=== PATIENT | male | born 1950 | race African-American/Black ===

== ENCOUNTER 2017-07-29 21:35 | Inpatient (IN) ==
--- NOTE | 2017-07-29 21:48 | Emergency Department Note ---
Disposition Clinical Impression: Left-sided weakness, Facial droop, Stroke-like symptoms Disposition: Admitted As Inpatient Condition: Fair Time of Disposition: 23:02 General Adult HPI - General Chief complaint: ED Neuro Symptoms/Deficit Stated complaint: Possible Stroke Time Seen by Provider: 07/29/17 21:39 Source: patient, EMS Mode of arrival: EMS Limitations: no limitations Nursing Notes Reviewed: Yes Vital Signs Reviewed: Yes - History of Present Illness HPI Narrative: Patient is a 67-year-old male presents with the complaint of left-sided facial drooping and left-sided weakness that started at 20:00 this evening approximately one hour prior to arrival. I spoke with the patient's partner states he was sitting in his chair and got accused [place] restroom and used. Unsteady on his feet and then he was slurring his words. Cervical squad. On arrival the patient does have left-sided facial weakness in upper and lower extremity weakness. He states he does not have any medical history, no history of strokes, no history of blood thinners. Pain Scale: 0 - Related Data Home Medications Medication Instructions Recorded Confirmed Aspirin Enteric Coated [Aspirin EC] 81 mg PO DAILY 07/29/17 07/29/17 Kyolic Circulation Formula 2 cap PO BID 07/29/17 07/29/17 Multivitamin [One Daily Essential] 1 each PO DAILY 07/29/17 07/29/17 Naproxen Sodium [Aleve] 440 mg PO DAILY 07/29/17 07/29/17 Vitamin B Complex [B Complex] 1 each PO DAILY 07/29/17 07/29/17 Allergies Allergy/AdvReac Type Severity Reaction Status Date / Time No Known Allergies Allergy Verified 07/29/17 21:37 All systems ED: reviewed and negative except as stated. Review of Systems: As Per HPI Constitutional: Denies: fever, chills Eyes: Denies: vision change ENT ED: Denies: congestion Cardiovascular: Denies: chest pain Respiratory: Denies: cough Neurological: Reports: weakness, abnormal gait. Denies: headache, numbness, paresthesias, confusion Past Medical History - Past Medical History Medical history: Reports: no medical history Psychiatric history: Reports: no psych history - Social History Smoking Status: Never smoker Smokeless Tobacco Status: No Alcohol use: Reports: rarely Drug use: Reports: none Physical Exam CONSTITUTIONAL: Alert and oriented X3, well-nourished, in no apparent distress HEAD: Normocephalic; atraumatic. EYES: PERRL, no scleral icterus. NOSE: The nose is normal in appearance without rhinorrhea RESP: Normal chest excursion with respiration; breath sounds clear and equal bilaterally; no wheezes, rhonchi, or rales CARD: Regular rhythm, without murmurs, rub or gallop ABD: Non-distended; non-tender, soft,without rigidity, rebound or guarding SKIN: Normal for age and race; warm and dry; no apparent lesions NEUROLOGICAL: Patient is alert and oriented times three. Cranial nerves III- XII are intact, except patient has tongue deviation to his left. Sensory functions are intact. Patient has 4/5 strength in the left upper and lower extremity. Patellar DTRS are equal and intact. Finger to nose testing is equal and normal bilaterally. No pronator drift. Patient has dysphagia and left sided facial droop. - General Limitations: no limitations General appearance: alert Course Course Narrative: Stroke alert as initiated upon patient's arrival. Patient is NIH stroke scale score of 4. We will consult with [facility] neurology and they will see the patient via telemedicine. - Reevaluation(s) Reevaluation #1: Stroke telemetry was initiated and Dr. Horton saw the patient and he was evaluated at that time and given a NIH stroke scale score of 2 due to his dysphagia. She states she is not a candidate for TPA due to the minor symptoms of his stroke. She recommended admission to our hospital for further evaluation and treatment. Time: 22:09 Reevaluation #2: Patient excepted by Dr. Valdivia. He requested a chest x-ray and a UA be put in on the patient and he will follow up with that and patient. Time: 23:06 Vital Signs Temperature 98.9 F 07/29/17 21:37 Pulse Rate 116 07/29/17 21:37 Respiratory Rate 18 07/29/17 21:37 Blood Pressure 208/121 07/29/17 21:37 O2 Sat by Pulse Oximetry 94 07/29/17 21:37 Temperature 98.5 F 07/30/17 11:32 Pulse Rate 104 07/30/17 11:32 Respiratory Rate 20 07/30/17 11:32 Blood Pressure 208/107 07/30/17 11:32 O2 Sat by Pulse Oximetry 97 07/30/17 11:32 Oxygen Delivery Oxygen Delivery Room Air Medical Decision Making - Medical Records Medical records reviewed: Yes I reviewed the patient's medical records. - Lab Data Lab results reviewed: Yes I reviewed the patient's lab results. Result diagrams: 07/30/17 04:01 07/30/17 04:01 Lab Results 07/29/17 07/29/17 07/29/17 Range/Units 21:44 21:44 21:44 WBC 17.6 H (4.3-11.1) K/mcL RBC 5.60 H (4.19-5.50) M/mcL Hgb 15.4 (12.9-16.9) g/dL Hct 48.0 (37.5-50.1) % MCV 85.7 (83.0-100.0) fL MCH 27.5 L (28.0-33.3) pg MCHC 32.1 (31.6-35.5) g/dL RDW 13.6 (11.5-14.5) % Plt Count 246 (140-400) K/mcL MPV 9.3 L (9.4-12.4) fL Immature Gran % 0.6 (0-4) % Seg Neutrophils % 82.8 % Lymphocytes % 9.7 % Monocytes % 6.5 % Eosinophils % 0.1 % Basophils % 0.3 % Neutrophils # 14.6 H (1.6-8.9) K/mcL Lymphocytes # 1.7 (0.6-4.6) K/mcL Monocytes # 1.2 (0.0-1.3) K/mcL Eosinophils # 0.0 (0.0-0.6) K/mcL Basophils # 0.1 (0.0-0.2) K/mcL PT 14.2 H (9.4-12.1) Seconds INR 1.3 APTT 29.8 (26.0-36.0) Seconds Sodium 135 L (136-145) mEq/L Potassium 3.5 (3.5-4.5) mEq/L Chloride 102 (98-109) mEq/L Carbon Dioxide 24 (19-29) mEq/L BUN 16 (8-26) mg/dL Creatinine 1.31 H (0.72-1.25) mg/dL Est GFR ( Amer) > 60 (> 60) Est GFR (Non-Af Amer) 54 L (> 60) BUN/Creatinine Ratio 12 (6-26) Glucose 133 H (70-99) mg/dL Calculated Osmolality 283 (280-300) Calcium 9.7 (8.6-10.8) mg/dL Troponin I (0-0.03) ng/mL Urine Color (Yellow) Urine Clarity (Clear) Urine pH (5.0-8.0) pH Units Ur Specific [place] (1.010-1.025) Urine Protein (Neg-Trace) mg/dL Urine Glucose (UA) (Normal) mg/dL Urine Ketones (Negative) mg/dL Urine Blood (Negative) Urine Nitrite (Negative) Urine Bilirubin (Negative) Urine Urobilinogen (Normal) mg/dL Ur Leukocyte Esterase (Negative) Urine Microscopic RBC (0-3) per hpf Urine Microscopic WBC (0-3) per hpf Ur Squamous Epith Cells (None-Few) per lpf Urine Bacteria (None-Few) per hpf Hyaline Casts (None-Few) per lpf 07/29/17 07/30/17 Range/Units 21:44 01:34 WBC (4.3-11.1) K/mcL RBC (4.19-5.50) M/mcL Hgb (12.9-16.9) g/dL Hct (37.5-50.1) % MCV (83.0-100.0) fL MCH (28.0-33.3) pg MCHC (31.6-35.5) g/dL RDW (11.5-14.5) % Plt Count (140-400) K/mcL MPV (9.4-12.4) fL Immature Gran % (0-4) % Seg Neutrophils % % Lymphocytes % % Monocytes % % Eosinophils % % Basophils % % Neutrophils # (1.6-8.9) K/mcL Lymphocytes # (0.6-4.6) K/mcL Monocytes # (0.0-1.3) K/mcL Eosinophils # (0.0-0.6) K/mcL Basophils # (0.0-0.2) K/mcL PT (9.4-12.1) Seconds INR APTT (26.0-36.0) Seconds Sodium (136-145) mEq/L Potassium (3.5-4.5) mEq/L Chloride (98-109) mEq/L Carbon Dioxide (19-29) mEq/L BUN (8-26) mg/dL Creatinine (0.72-1.25) mg/dL Est GFR ( Amer) (> 60) Est GFR (Non-Af Amer) (> 60) BUN/Creatinine Ratio (6-26) Glucose (70-99) mg/dL Calculated Osmolality (280-300) Calcium (8.6-10.8) mg/dL Troponin I 0.01 (0-0.03) ng/mL Urine Color Dark Yellow (Yellow) Urine Clarity Clear (Clear) Urine pH 5.5 (5.0-8.0) pH Units Ur Specific [place] 1.030 H (1.010-1.025) Urine Protein 100 H (Neg-Trace) mg/dL Urine Glucose (UA) Normal (Normal) mg/dL Urine Ketones 15 H (Negative) mg/dL Urine Blood Moderate H (Negative) Urine Nitrite Negative (Negative) Urine Bilirubin Small H (Negative) Urine Urobilinogen Normal (Normal) mg/dL Ur Leukocyte Esterase Negative (Negative) Urine Microscopic RBC 30-50 H (0-3) per hpf Urine Microscopic WBC 3-5 H (0-3) per hpf Ur Squamous Epith Cells Many H (None-Few) per lpf Urine Bacteria None Seen (None-Few) per hpf Hyaline Casts Few (None-Few) per lpf - Radiology Data Radiology results reviewed: Yes I reviewed the patient's radiology results. Head CT 07/29/17 21:39 IMPRESSION: No definite acute intracranial findings, including no intracranial hemorrhage or evidence of large territory infarction by CT. There are patchy and periventricular subcortical white matter low attenuation changes, including in the right frontal lobe, which are nonspecific, but may represent sequela of chronic small vessel ischemic change. D/ / 07/29/2017 22:13:53 Rashard James MD / main Interpreting Provider: Rashard James MD - EKG Data EKG #1 EKG attestation: Yes I reviewed and interpreted this EKG. EKG results narrative: Patient's EKG done at 21:57 shows sinus tachycardia, normal axis, KS is 148, QRS is 88, QT is 333 and QTC is 398. Patient has no ST elevations or depressions present. LVH. No acute ischemia.
[2017-07-29 21:51] LABS: Basophils # 0.1 K/mcL (0.0-0.2); Basophils % 0.3 %; Eosinophils % 0.1 %; Hemoglobin 15.4 g/dL (12.9-16.9); Immature Granulocytes % 0.6 % (0-4); Lymphocytes # 1.7 K/mcL (0.6-4.6); Lymphocytes % 9.7 %; Mean Corpuscular HGB Conc 32.1 g/dL (31.6-35.5); Mean Corpuscular Hemoglobin 27.5 pg (28.0-33.3); Mean Corpuscular Volume 85.7 fL (83.0-100.0); Mean Platelet Volume 9.3 fL (9.4-12.4); Monocytes # 1.2 K/mcL (0.0-1.3); Monocytes % 6.5 %; Neutrophils # 14.6 K/mcL (1.6-8.9); Platelet Count 246 K/mcL (140-400); Red Cell Distribution Width 13.6 % (11.5-14.5); Segmented Neutrophils % 82.8 %
[2017-07-29 21:58] LABS: INR 1.3; Prothrombin Time 14.2 Seconds (9.4-12.1)
[2017-07-29 22:00] LABS: Activated Partial Thrombo Time 29.8 Seconds (26.0-36.0)
[2017-07-29 22:05] LABS: BUN/Creatinine Ratio 12 (6-26); Blood Urea Nitrogen 16 mg/dL (8-26); Calcium 9.7 mg/dL (8.6-10.8); Carbon Dioxide 24 mEq/L (19-29); Chloride 102 mEq/L (98-109); Glucose 133 mg/dL (70-99); Osmolality,Calculated 283 (280-300); Potassium 3.5 mEq/L (3.5-4.5); Sodium 135 mEq/L (136-145); eGFR For African Americans > 60 (> 60); eGFR For Non-African Americans 54 (> 60)
[2017-07-30 01:45] LABS: Bilirubin,Urine Small (Negative); Blood,Urine Moderate (Negative); Clarity,Urine Clear (Clear); Color,Urine Dark Yellow (Yellow); Glucose,Urine (UA) Normal (Normal); Ketones,Urine 15 mg/dL (Negative); Leukocyte Esterase,Urine Negative (Negative); Nitrite,Urine Negative (Negative); PH,Urine 5.5 pH Units (5.0-8.0); Protein,Urine 100 mg/dL (Neg-Trace); Urobilinogen,Urine Normal (Normal)
[2017-07-30 01:47] LABS: Bacteria,Urine None Seen per hpf (None-Few); Hyaline Casts,Urine Few per lpf (None-Few); RBC,Urine 30-50 per hpf (0-3); Squamous Epithelial Cell,Urine Many per lpf (None-Few)
--- NOTE | 2017-07-30 03:03 | Internal Med History&Physical ---
Date of Encounter: 07/30/17 Time of Encounter: 02:00 Assessment and Plan (1) Slurring of speech Current visit: Yes Status: Acute -Patient with slurred speech on exam but no other neurological deficits appreciated. -Will continue workup for suspected CVA with MRI/MRA of brain and neck. -Start patient on full aspirin and order fasting lipids/A1c -Monitor blood pressure. -Neurology/physical therapy consulted and appreciate recommendations (2) Hypertension Current visit: Yes Status: Acute -Patient with long-standing history of uncontrolled hypertension. -Will continue to monitor. Qualifiers: Hypertension type: unspecified Qualified Code(s): I10 - Essential (primary ) hypertension (3) TEMI (acute kidney injury) Current visit: Yes Status: Acute -Patient with elevated creatinine of 1.31 and GFR 54. -Will continue to monitor. (4) URI (upper respiratory infection) Current visit: Yes Status: Acute -Patient with leukocytosis secondary to viral URI. -Supportive care. Qualifiers: URI type: acute nasopharyngitis (common cold) Qualified Code(s): J00 - Acute nasopharyngitis [common cold] Internal Medicine - H&P: HPI Admitted From: Home Plans for Post Hospital Care: Home History of present illness: Patient is a 67-year-old male with past medical history significant for uncontrolled hypertension who presents to the ER on 07/30/17 with slurred speech. Patient reports that his friend noticed that his speech was slurred around 8 PM the evening of admission. In addition, patient who is right-handed noticed that he had decreased bridge attacher in left hand and had unsteady gait. EMS was called and patient was brought into the ER for further evaluation. Patient admits to having uncontrolled hypertension for at least 1 year and did not follow-up with primary care provider for management; he was diagnosed at urgent care. In the ER, patient was noted to have slurred speech; ER physician discussed with neurologist through telecommunication and TPA was not recommended. Patient will be admitted to the medical floor for further evaluation and management. Past Med Surg Social Fam HX - Past Medical History Medical history: no medical history Psychiatric history: no psych history - Social History Smoking Status: Former smoker Smokeless Tobacco Status: No Alcohol use: rarely Drug use: none Internal Medicine - H&P: Meds Aspirin Enteric Coated [Aspirin EC] 81 mg PO DAILY 07/29/17 [History] Kyolic Circulation Formula 2 cap PO BID 07/29/17 [History] Multivitamin [One Daily Essential] 1 each PO DAILY 07/29/17 [History] Naproxen Sodium [Aleve] 440 mg PO DAILY 07/29/17 [History] Vitamin B Complex [B Complex] 1 each PO DAILY 07/29/17 [History] 3 Allergy/AdvReac Type Severity Reaction Status Date / Time No Known Allergies Allergy Verified 07/29/17 21:37 All Systems PM: A 10-system review of systems was performed and is negative for pertinent findings except as documented above in the HPI. - Constitutional Vitals: Temp Pulse Resp BP Pulse Ox 98.4 F 102 20 207/146 98 07/30/17 00:14 07/30/17 00:55 07/30/17 00:14 07/30/17 00:55 07/30/17 00:14 General appearance: Present: A&O X 3, answers questions appropriately - Head Head exam: Present: atraumatic, normocephalic - Eye Eye exam: Present: EOMI - ENT ENT exam: Present: mucous membranes moist - Respiratory Respiratory exam: Present: CTAB. Absent: accessory muscle use, rales, rhonchi, wheezes - Cardiovascular Cardiovascular exam: Present: RRR, +S1, +S2. Absent: diastolic murmur, gallop, rubs, systolic murmur - GI/Abdominal GI/Abdominal exam: Present: normal bowel sounds, soft, no peritoneal signs. Absent: distended, tenderness - Expanded Neurological Exam Neurological exam expanded: Present: ataxia. Absent: expressive aphasia Speech: Present: slurred Cranial Nerves: EOM's intact PM: Normal, tongue deviation PM: Normal Cerebellar function: finger to nose: Normal, heel to rosen: Normal Upper motor neuron: pronator drift: Normal Sensory exam: lower extremity light touch: Normal, lower extremity temperature: Normal, upper extremity light touch: Normal, upper extremity temperature: Normal Neuro motor strength exam: LUE: 5, RUE: 5, LLE: 5, RLE: 5 - Psychiatric Psychiatric exam: Present: normal mood - Skin Skin exam: Present: warm Internal Med - H&P Results - Labs CBC & Chem 7: 07/29/17 21:44 07/29/17 21:44 Labs: Urine 07/30/17 Range/Units 01:34 Urine Color Dark Yellow (Yellow) Urine Clarity Clear (Clear) Urine pH 5.5 (5.0-8.0) pH Units Ur Specific [place] 1.030 H (1.010-1.025) Urine Protein 100 H (Neg-Trace) mg/dL Urine Glucose (UA) Normal (Normal) mg/dL
[2017-07-30] MEDS ORDERED: Naloxone 0.4 MG/ML INJ IVP PRN (03:20)
[2017-07-30 04:46] LABS: Basophils % 0.2 %; Eosinophils % 0.1 %; Hematocrit 47.5 % (37.5-50.1); Hemoglobin 15.1 g/dL (12.9-16.9); Immature Granulocytes % 0.5 % (0-4); Lymphocytes # 1.6 K/mcL (0.6-4.6); Lymphocytes % 9.5 %; Mean Corpuscular HGB Conc 31.8 g/dL (31.6-35.5); Mean Corpuscular Volume 84.8 fL (83.0-100.0); Mean Platelet Volume 9.7 fL (9.4-12.4); Monocytes # 1.2 K/mcL (0.0-1.3); Monocytes % 7.5 %; Neutrophils # 13.5 K/mcL (1.6-8.9); Platelet Count 239 K/mcL (140-400); Red Cell Distribution Width 13.5 % (11.5-14.5); Segmented Neutrophils % 82.2 %
[2017-07-30 04:50] LABS: Hemoglobin A1C 5.1 %
[2017-07-30 04:57] LABS: BUN/Creatinine Ratio 13 (6-26); Blood Urea Nitrogen 16 mg/dL (8-26); Calcium 9.5 mg/dL (8.6-10.8); Carbon Dioxide 23 mEq/L (19-29); Chloride 102 mEq/L (98-109); Chol/HDL Ratio 3.5 (0-4.9); Cholesterol 160 mg/dL (< 200); Glucose 116 mg/dL (70-99); HDL Cholesterol 46 mg/dL (40-59); LDL Cholesterol,Calculated 95 mg/dL (0-99); Osmolality,Calculated 284 (280-300); Potassium 3.9 mEq/L (3.5-4.5); Sodium 136 mEq/L (136-145); Triglycerides 96 mg/dL (< 150); eGFR For African Americans > 60 (> 60); eGFR For Non-African Americans > 60 (> 60)
[2017-07-30] MEDS ORDERED: Aspirin Enteric Coated 325 MG Tablet PO SCH (09:00)
--- NOTE | 2017-07-30 10:52 | Neurology - Consult Note ---
Date of Encounter: 07/30/17 Time of Encounter: 10:51 Assessment and Plan (1) CVA (cerebral vascular accident) Current Visit: Yes Status: Acute The patient with PMH significant for HTN who developed slurred speech and left sided weakness, consistent with MRI of brain showing new acute new small cerebral infarct bilaterally more on the right side. This appears embolic in etiology. 1. Continue telemetry monitoring. 2. Will need LEONID if TTE returns normal. 3. Agree with Aspirin 325mg daily. 4. Await formal report of MRI of brain and MRA of brain and neck. 5. Await Carotid artery duplex study. 6. If cardiac source can not be identified, patient may benefit from outpatient group home cardiac rhythm monitoring Continue medical treatment of renal failure and leucocytosis, which appear improving Qualifiers: CVA mechanism: embolism Precerebral and cerebral artery: unspecified precerebral artery Qualified Code(s): I63.10 - Cerebral infarction due to embolism of unspecified precerebral artery History of Present Illness Chief complaint: slurred speech and left aided weakness HPI: Mr. Foster is a 67 year old male with PMH significant for HTN who developed acute onset of slurred speech and left arm weakness. This occurred last night at around 8pm and by the time he arrived ER he has only slurred speech. Contact [facility] stroke telemedicine team who recommended no tPA and hospital admission. MRI of brain just completed and showed few small acute ischemic infarct involving both hemisphere more on the right side. MRA of brain and neck completed and result is pending. Patient neurological symptoms significantly improved at present time. Patient stakes 81mg aspirin at home. Increased to full dose Aspirin. Has history of HTN and not seeing PCP. no history cardiac dysarrhythmia. Past Med Surg Social Fam HX - Past Medical History Medical history: no medical history Psychiatric history: no psych history - Social History Smoking Status: Former smoker Smokeless Tobacco Status: No Alcohol use: rarely Drug use: none Medications and Allergies Aspirin Enteric Coated [Aspirin EC] 81 mg PO DAILY 07/29/17 [History] Kyolic Circulation Formula 2 cap PO BID 07/29/17 [History] Multivitamin [One Daily Essential] 1 each PO DAILY 07/29/17 [History] Naproxen Sodium [Aleve] 440 mg PO DAILY 07/29/17 [History] Vitamin B Complex [B Complex] 1 each PO DAILY 07/29/17 [History] 3 Allergy/AdvReac Type Severity Reaction Status Date / Time No Known Allergies Allergy Verified 07/29/17 21:37 All Systems: A 10-system review of systems was performed and is negative for pertinent findings except as documented above in the HPI. Physical Examination - Vital Signs Vital Signs: Initial Vital Signs Temp Pulse Resp BP Pulse Ox 98.9 F 116 18 208/121 94 07/29/17 21:37 07/29/17 21:37 07/29/17 21:37 07/29/17 21:37 07/29/17 21:37 - Constitutional General appearance: comfortable - Neurologic Detailed motor examination: full strength in all major muscle groups Motor examination - right side: 01/21: deltoids, biceps, triceps, wrist flexion, wrist extension, varnish melter, hip flexors, tibialis Anterior, quadriceps, toe extension (EHL), plantarflexion Motor examination - left side: 01/21: deltoids, biceps, triceps, wrist flexion, wrist extension, hip flexors, varnish melter, quadriceps, tibialis Anterior, toe extension (EHL), plantarflexion Mental Status Examination: awake, alert, oriented to person, oriented to place, oriented to time, follows commands appropriately, answers questions appropriately, no agnosia, no aphasia, no aproxia Cranial nerve examination: PERRL, EOMI, visual carrington intact, corneal reflexes brisk symmetrically, sensory to face intact, mastication intact, no facial asymmetry is present, no dysarthria, hearing is intact symmetrically, soft palate elevates bilaterally upon phonation, gag reflex intact, flexes SCM and trapezius muscles symmetrically with full power, tongue protrudes midline, no atrophy or facial fasiculations present Cerebellar examination: no dysmetria, performs finger to nose and heel to rosen symmetrically without ataxia, no gait ataxia, no truncal ataxia, no difficulty with rapid alternating movements Results - Laboratory Findings CBC and BMP: 07/30/17 04:01 07/30/17 04:01 Abnormal lab findings: Abnormal lab results WBC 16.5 K/mcL (4.3-11.1) H 07/30/17 04:01 RBC 5.60 M/mcL (4.19-5.50) H 07/30/17 04:01 MCH 27.0 pg (28.0-33.3) L 07/30/17 04:01 Neutrophils # 13.5 K/mcL (1.6-8.9) H 07/30/17 04:01 PT 14.2 Seconds (9.4-12.1) H 07/29/17 21:44 Glucose 116 mg/dL (70-99) H 07/30/17 04:01 Ur Specific [place] 1.030 (1.010-1.025) H 07/30/17 01:34 Urine Protein 100 mg/dL (Neg-Trace) H 07/30/17 01:34 Urine Ketones 15 mg/dL (Negative) H 07/30/17 01:34 Urine Blood Moderate (Negative) H 07/30/17 01:34 Urine Bilirubin Small (Negative) H 07/30/17 01:34 Urine Microscopic RBC 30-50 per hpf (0-3) H 07/30/17 01:34 Urine Microscopic WBC 3-5 per hpf (0-3) H 07/30/17 01:34 Ur Squamous Epith Cells Many per lpf (None-Few) H 07/30/17 01:34 Consult Discharge Plan - Plan Referrals: NONE,PCP [Primary Care Provider] -
--- NOTE | 2017-07-30 14:25 | Internal Med Progress Note ---
Date of Encounter: 07/30/17 Time of Encounter: 09:40 - Assessment and plan (1) Acute CVA (cerebrovascular accident) Current Visit: Yes Status: Acute Assessment and plan: Acute CVA of the right temporal and frontal lobe involving the right middle cerebral artery territory, subacute infarct in the left insula cortex with mild chronic small vessel ischemic disease, possible embolic source - causing slurred speech and transient left-sided weakness Continue Aspirin 325 mg, Lipitor 40 mg Add Losartan/HCTZ, permissive hypertension due to acute CVA CT head - no acute intracranial findings MRA head/neck - no significant abnormality of the intracranial circulation, no significant abnormality of the neck vessels MRI brain - reviewed CXR - no acute process EKG - sinus tachycardia with no acute ST-T changes Troponin - 0.01 Lipid panel - reviewed Carotid Doppler - pending Echocardiogram - pending Speech therapy consult - advised patient needs an regular textures with continuous aspiration precautions Start clear liquids tonight and then advance PT/OT consult - pending Neurology consult - recommendations reviewed, appreciate input Cardiac telemetry, NIH stroke scale, labs in a.m., neurochecks, monitor closely (2) Accelerated hypertension Current Visit: Yes Status: Acute Assessment and plan: Accelerated hypertension - newly diagnosed Start Losartan/HCTZ Permissive hypertension due to acute CVA - goal SBP between 160-180 for 24 hours (3) DVT prophylaxis Current Visit: Yes Status: Acute Assessment and plan: Continue Heparin subcutaneous - Time Spent With Patient 25 - 35 minutes - Subjective Interval history: Examined this morning. Patient is awake and alert. Not in any distress. Denies chest pain or shortness of breath. No fever. Blood pressure is uncontrolled. Family is at bedside. No other acute events or complaints. Family states his speech is better but not back to baseline. Admitted for slurred speech and left-sided weakness. MRI does show acute CVA which could possibly be embolic in origin. Echocardiogram is pending. Neurology has evaluated patient. Patient passed the swallow study and can be on a cardiac diet. - Constitutional Vitals: Temp Pulse Resp BP Pulse Ox 98.5 F 104 20 208/107 97 07/30/17 12:55 07/30/17 12:55 07/30/17 12:55 07/30/17 12:55 07/30/17 11:32 General appearance: Present: cooperative, A&O X 3, pleasant, no acute distress, answers questions appropriately Exam: Able to verbalize and follows commands. - Head Head exam: Present: atraumatic - Eye Eye exam: Present: EOMI - ENT ENT exam: Present: mucous membranes moist - Neck Neck exam general surgery: Present: full ROM - Respiratory Respiratory exam: Present: CTAB. Absent: accessory muscle use, chest wall tenderness, rales, rhonchi, wheezes, tachypnea - Cardiovascular Cardiovascular exam: Present: RRR, +S1, +S2 - GI/Abdominal GI/Abdominal exam: Present: soft. Absent: distended, firm, guarding, tenderness - Extremities Exam Extremities exam: Present: radial pulses palpable and symmetrical. Absent: calf tenderness, cyanotic, pedal edema - Neurological Exam Neurological exam: Present: alert, CN II-XII intact, oriented X3, no focal deficits, speech deficit (Mild slurred speech). Absent: facial droop Internal Medicine: Result - Labs CBC & Chem 7: 07/30/17 04:01 07/30/17 04:01 Labs: Short CBC 07/30/17 Range/Units 04:01 WBC 16.5 H (4.3-11.1) K/mcL Hgb 15.1 (12.9-16.9) g/dL Hct 47.5 (37.5-50.1) % Plt Count 239 (140-400) K/mcL Neutrophils # 13.5 H (1.6-8.9) K/mcL BMP 07/30/17 04:01 Sodium 136 Potassium 3.9 Chloride 102 Carbon Dioxide 23 BUN 16 Creatinine 1.19 Glucose 116 H Calcium 9.5 - ABG Interpretation ABG results: PT/INR, D-dimer PT 14.2 Seconds (9.4-12.1) H 07/29/17 21:44 - VTE Reasons for not Prescribing Prophylaxis: Treatment not Indicated - Low risk for VTE Consult Discharge Plan - Plan Referrals: NONE,PCP [Primary Care Provider] -
[2017-07-30] MEDS ORDERED: Ondansetron 4 MG/2 ML VIAL IVP PRN (16:00)
[2017-07-30] MEDS ORDERED: 0.9 % Sodium Chloride 1,000 ML IVC SCH (16:15)
[2017-07-30] MEDS: Losartan/HCTZ 50-12.5 TABLET PO SCH (17:44)
[2017-07-30] MEDS: *HR* Heparin 5,000 UNIT/ML VIAL SQ SCH (17:44)
[2017-07-30] MEDS: Famotidine 20 MG TABLET PO SCH (21:14)
[2017-07-30] MEDS ORDERED: hydrOXYzine pamoate 25 MG CAPSULE PO ONE (21:28)
[2017-07-31 04:06] LABS: Basophils % 0.3 %; Eosinophils # 0.1 K/mcL (0.0-0.6); Eosinophils % 0.5 %; Hematocrit 45.2 % (37.5-50.1); Hemoglobin 14.3 g/dL (12.9-16.9); Immature Granulocytes % 0.5 % (0-4); Lymphocytes # 2.1 K/mcL (0.6-4.6); Lymphocytes % 19.6 %; Mean Corpuscular HGB Conc 31.6 g/dL (31.6-35.5); Mean Corpuscular Volume 85.3 fL (83.0-100.0); Mean Platelet Volume 9.5 fL (9.4-12.4); Monocytes # 0.8 K/mcL (0.0-1.3); Monocytes % 7.9 %; Neutrophils # 7.5 K/mcL (1.6-8.9); Platelet Count 267 K/mcL (140-400); Red Cell Distribution Width 13.6 % (11.5-14.5); Segmented Neutrophils % 71.2 %
[2017-07-31] MEDS: *HR* Heparin 5,000 UNIT/ML VIAL SQ SCH ×2 (05:31→17:34)
[2017-07-31] MEDS: Losartan/HCTZ 50-12.5 TABLET PO SCH (09:33)
[2017-07-31] MEDS: Aspirin 325 MG TABLET PO SCH (09:33)
[2017-07-31] MEDS: Multivit/Ca/Min/Fe/FA 1 TAB TABLET PO SCH (09:33)
[2017-07-31] MEDS: Famotidine 20 MG TABLET PO SCH ×2 (09:34→21:49)
--- NOTE | 2017-07-31 15:20 | Internal Med Progress Note ---
Date of Encounter: 07/31/17 Time of Encounter: 11:00 - Assessment and plan (1) Acute CVA (cerebrovascular accident) Current Visit: Yes Status: Acute Assessment and plan: Acute CVA of the right temporal and frontal lobe involving the right middle cerebral artery territory, subacute infarct in the left insula cortex with mild chronic small vessel ischemic disease, possible embolic source - causing slurred speech and transient left-sided weakness - symptoms now improved Continue Aspirin 325 mg, Lipitor 40 mg Add Losartan/HCTZ, Lopressor, permissive hypertension due to acute CVA CT head - no acute intracranial findings MRA head/neck - no significant abnormality of the intracranial circulation, no significant abnormality of the neck vessels MRI brain - reviewed CXR - no acute process EKG - sinus tachycardia with no acute ST-T changes Troponin - 0.01 Lipid panel - reviewed Carotid Doppler - pending Echocardiogram - pending Speech therapy consult - advised patient needs an regular textures with continuous aspiration precautions - start cardiac diet today PT/OT consult - pending Neurology consult - recommendations reviewed, appreciate input Cardiac telemetry, NIH stroke scale, labs in a.m., neurochecks, monitor closely , anticipate discharge soon (2) Accelerated hypertension Current Visit: Yes Status: Acute Assessment and plan: Accelerated hypertension - newly diagnosed Start Losartan/HCTZ, Lopressor Permissive hypertension due to acute CVA - goal SBP between 160-180 for 24 hours (3) DVT prophylaxis Current Visit: Yes Status: Acute Assessment and plan: Continue Heparin subcutaneous - Time Spent With Patient 25 - 35 minutes - Subjective Interval history: Examined this morning. Patient is awake and alert. Not in any distress. Denies chest pain or shortness of breath. No fever. Blood pressure is still elevated. Family is at bedside. No other acute events or complaints. Family and patient state his speech is better today. Patient denies any weakness or numbness. MRI does show acute CVA which could possibly be embolic in origin. Echocardiogram is pending. Neurology has evaluated patient. Patient passed the swallow study and can be on a cardiac diet. - Constitutional Vitals: Temp Pulse Resp BP Pulse Ox 99.3 F 94 14 165/92 96 07/31/17 11:38 07/31/17 11:38 07/31/17 11:38 07/31/17 11:38 07/31/17 11:38 General appearance: Present: cooperative, A&O X 3, pleasant, no acute distress, answers questions appropriately Exam: Able to verbalize and follows commands. Slurred speech has improved. - Head Head exam: Present: atraumatic - Eye Eye exam: Present: EOMI - ENT ENT exam: Present: mucous membranes moist - Respiratory Respiratory exam: Present: CTAB. Absent: accessory muscle use, chest wall tenderness, rales, rhonchi, wheezes, tachypnea - Cardiovascular Cardiovascular exam: Present: RRR, +S1, +S2 - GI/Abdominal GI/Abdominal exam: Present: soft. Absent: distended, firm, guarding, tenderness - Extremities Exam Extremities exam: Present: radial pulses palpable and symmetrical. Absent: calf tenderness, cyanotic, pedal edema - Neurological Exam Neurological exam: Present: alert, CN II-XII intact, oriented X3, no focal deficits. Absent: pronater drift, facial droop Additional comments: Slurred speech has improved Internal Medicine: Result - Labs CBC & Chem 7: 07/31/17 03:44 07/30/17 04:01 Labs: Short CBC 07/31/17 Range/Units 03:44 WBC 10.5 (4.3-11.1) K/mcL Hgb 14.3 (12.9-16.9) g/dL Hct 45.2 (37.5-50.1) % Plt Count 267 (140-400) K/mcL Neutrophils # 7.5 (1.6-8.9) K/mcL - ABG Interpretation ABG results: PT/INR, D-dimer PT 14.2 Seconds (9.4-12.1) H 07/29/17 21:44 - VTE Reasons for not Prescribing Prophylaxis: Treatment not Indicated - Low risk for VTE Documentation of Mechanical Device: Intermittent pneumatic compression device Consult Discharge Plan - Plan Referrals: NONE,PCP [Primary Care Provider] -
--- NOTE | 2017-07-31 17:47 | Electrocardiograph Report ---
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
[2017-08-01] MEDS: *HR* Heparin 5,000 UNIT/ML VIAL SQ SCH (05:40)
[2017-08-01] MEDS: Multivit/Ca/Min/Fe/FA 1 TAB TABLET PO SCH (08:06)
[2017-08-01] MEDS: Losartan/HCTZ 50-12.5 TABLET PO SCH (08:06)
[2017-08-01] MEDS: Aspirin 325 MG TABLET PO SCH (08:07)
[2017-08-01] MEDS: Famotidine 20 MG TABLET PO SCH (08:07)
[2017-08-01] MEDS ORDERED: Lidocaine Viscous Oral Soln 15 ML SOLUTION MM PRN (08:20)
[2017-08-01] MEDS ORDERED: 0.9 % Sodium Chloride 500 ML IVC ONE (08:21)
[2017-08-01] MEDS ORDERED: Tetracaine/Benzocaine/Butamben 200MG/SPRAY (100SPY/BOT) MM ONE (08:21)
[2017-08-01] MEDS: *HR* Midazolam HCl 5 MG/5 ML VIAL IVP PRN ×2 (09:10→09:15)
[2017-08-01] MEDS: *HR* FentaNYL (PF) 100 MCG/2 ML VIAL IVP PRN ×2 (09:10→09:15)
[2017-08-01] MEDS ORDERED: *HR* Labetalol 20 MG/4 ML SYRINGE IVP ONE (14:35)
--- NOTE | 2017-08-01 14:41 | Discharge Summary ---
Date of Encounter: 08/01/17 Time of Encounter: 11:00 - Discharge Diagnosis (1) Acute CVA (cerebrovascular accident) Priority: Primary Status: Acute Comments: Acute CVA of the right temporal and frontal lobe involving the right middle cerebral artery territory, subacute infarct in the left insula cortex with mild chronic small vessel ischemic disease, possibly due to uncontrolled and undiagnosed hypertension - no obvious cardiac embolic source seen on LEONID Symptoms of slurred speech and left-sided weakness has now resolved Continue Aspirin 325 mg, Lipitor 40 mg Continue Losartan/HCTZ, Lopressor, Norvasc CT head - no acute intracranial findings MRA head/neck - no significant abnormality of the intracranial circulation, no significant abnormality of the neck vessels MRI brain - reviewed CXR - no acute process EKG - sinus tachycardia with no acute ST-T changes Troponin - 0.01 Lipid panel - reviewed Carotid Doppler - nonstenotic plaque bilaterally LEONID - LVEF 65%, normal LV function, normal RV size and function, mild concentric LVH, LAE appendage is normal, no thrombus, no intra-atrial shunting, no valve dysfunction, no cardiac source of emboli Speech therapy consult - advised patient can be on a regular textures diet with aspiration precautions PT/OT have evaluated the patient and recommended that patient has no further needs Neurology consult - recommendations reviewed, appreciate input Patient will need outpatient Holter monitoring, return if symptoms worsen, follow up with primary care physician (2) Accelerated hypertension Priority: Primary Status: Acute Comments: Accelerated hypertension - newly diagnosed - now improved Continue Losartan/HCTZ, Lopressor, Norvasc Aspirin, Lipitor Permissive hypertension due to acute CVA - goal SBP between 160-180 for first 24 hours - Discharge Medications Prescriptions: amLODIPine [Norvasc] 5 mg PO DAILY #30 tablet Aspirin 325 mg PO DAILY #30 tablet Atorvastatin [Lipitor] 40 mg PO HS #30 tablet Losartan/HCTZ [Hyzaar 50-12.5 Tablet] 1 each PO DAILY #30 tablet Metoprolol Tartrate [Lopressor] 50 mg PO BID #60 tablet Home Medications: Kyolic Circulation Formula 2 cap PO BID 07/29/17 [History] Multivitamin [One Daily Essential] 1 each PO DAILY 07/29/17 [History] Vitamin B Complex [B Complex] 1 each PO DAILY 07/29/17 [History] Aspirin 325 mg PO DAILY #30 tablet 08/01/17 [Rx] Atorvastatin [Lipitor] 40 mg PO HS #30 tablet 08/01/17 [Rx] Losartan/HCTZ [Hyzaar 50-12.5 Tablet] 1 each PO DAILY #30 tablet 08/01/17 [Rx] Metoprolol Tartrate [Lopressor] 50 mg PO BID #60 tablet 08/01/17 [Rx] amLODIPine [Norvasc] 5 mg PO DAILY #30 tablet 08/01/17 [Rx] Allergies/Adverse Reactions: 3 Allergy/AdvReac Type Severity Reaction Status Date / Time No Known Allergies Allergy Verified 07/29/17 21:37 Procedures/tests Complete & Pending: Procedures Performed prior 72 hours Category Date Time Status ECG 12 lead ECG [ECG] Routine Y 07/29/17 21:57 Completed EV LEONID transesophageal echo Routine Y 08/01/17 11:18 Completed EV carotid duplex imaging BI Routine Y 07/30/17 15:48 Completed EV echocardiogram Routine Y 07/30/17 Completed Date of admission: 07/30/17 03:20 Primary care physician: PCP NONE Consults: 07/30/17 14:23 Consult to Occupational Therapy [CONS] Routine Comment: Evaluate, develop and implement POC Reason for Consult: Acute CVA 07/31/17 23:21 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 Reason for SW Consult: Pts wants to know how he can get a handicap sticker for his car Anticipated date of discharge: 08/01/17 - Patient Status Disposition: Home, Self-Care Condition: Good Functional capacity at discharge: independent ambulation Overall status at discharge: patient is back to baseline - Discharge Instructions Follow Up With: NONE,PCP [Primary Care Provider] - Additional Instructions: - Continue all meds as per discharge instructions - Return if symptoms worsen - Follow up with primary care physician - Check blood pressure daily, and advised to be compliant with medication - Will need outpatient Holter monitoring - Diet and Activity Activity: increase activity as tolerated, resume usual activities as tolerated Diet: low fat, low cholesterol, low salt diet Hospital course: Mr. Foster is a 67 year old male with no significant past medical history. 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 Patient stated that he has a right nose with uncontrolled hypertension at an urgent care, and has not followed up with any primary care physician. Initial CT of the head is negative for acute intracranial findings or hemorrhage, possible chronic small vessel ischemic change. Patient had a neurology consult with [facility] via telemedicine, and TPA was not recommended at that time. Advised to admit the patient for further evaluation. Patient was started on aspirin 325 mg and also Lipitor. His blood pressure was uncontrolled. Neurology has evaluated the patient and advised to continue current medication. Also advised to follow-up with carotid Doppler and transesophageal echocardiogram. Speech therapy has evaluated patient and stated that he can tolerate a regular texture diet with aspiration precautions. Patient was initially nothing by mouth and then started on clear liquids and then was on a cardiac diet. PT/OT have also evaluated the patient and did not have any further recommendations. Patient's slurred speech and left-sided weakness have now resolved. MRI of the brain shows right temporal and frontal lobe infarct involving the right MCA territory with a subacute infarct in the left insula cortex with mild chronic small vessel ischemic disease. Possible embolic source as per neurology. Transesophageal echo shows LVEF 65% with no evidence of cardiac emboli. Carotid Doppler shows nonstenotic plaque bilaterally. Troponin is negative and EKG does not show any acute ST-T changes. Blood pressure is now better controlled. Permissive hypertension for the first 24 hours after presentation, now he can continue all medications. Patient will need outpatient Holter monitoring. He has been started on Hyzaar, Lopressor and Norvasc. He has been advised to continue aspirin and statin. Patient's symptoms are now completely resolved. He is ambulating well and tolerating oral diet well. He tolerated all his medications well. No other acute events or complications during his stay. Patient and family members have been explained about his condition and plan of care in detail. They understood and agreed. No anemia to questions. Patient does not want to go to [facility] and does not want home health services at this time. He states he will continue all his meds regularly and states he will follow-up with a primary care physician. - Time Spent with Patient Total time spent providing and/or coordinating discharge services: Greater than 30 minutes - Constitutional Vitals: Temp Pulse Resp BP Pulse Ox 97.9 F 99 14 184/108 96 08/01/17 08:42 08/01/17 08:42 08/01/17 08:42 08/01/17 08:42 08/01/17 11:10 General appearance: Present: cooperative, A&O X 3, pleasant, no acute distress, answers questions appropriately Exam: Able to verbalize and follows verbal commands. Slurred speech has resolved. - Head Head exam: Present: atraumatic - Eye Eye exam: Present: EOMI, PERRL - ENT ENT exam: Present: mucous membranes moist - Respiratory Respiratory exam: Absent: accessory muscle use, chest wall tenderness, rales, rhonchi, wheezes, tachypnea - Cardiovascular Cardiovascular exam: Present: RRR, +S1, +S2 - GI/Abdominal GI/Abdominal exam: Present: soft. Absent: distended, firm, guarding, tenderness - Extremities Exam Extremities exam: Present: radial pulses palpable and symmetrical. Absent: calf tenderness, cyanotic, pedal edema - Neurological Exam Neurological exam: Present: alert, CN II-XII intact, oriented X3, no focal deficits, strengths equal and symetr throughout. Absent: facial droop, speech deficit - VTE Reasons for not Prescribing Prophylaxis: Treatment not Indicated - Low risk for VTE Documentation of Mechanical Device: Intermittent pneumatic compression device
--- NOTE | 2017-08-01 15:04 | Neurology Progress Note ---
Date of Encounter: 08/01/17 Time of Encounter: 12:00 Assessment and Plan (1) CVA (cerebral vascular accident) Current Visit: Yes Status: Acute Cryptogenic embolic infarct in a patient with HTN. Work up including LEONID, TTE, CVA of neck and brain and carotid artery duplex study showed no significant pathology. Continue Aspirin 325mg daily for secondary stroke prevention. Continue statin therapy. Follow up with PCP, cardiology follow up and may benefit from manager terminal rhythm monitoring Qualifiers: CVA mechanism: embolism Precerebral and cerebral artery: unspecified precerebral artery Qualified Code(s): I63.10 - Cerebral infarction due to embolism of unspecified precerebral artery Subjective Principal diagnosis: CVA Interval history: Patient seen and examined. He is doing well no residual neurological deficits now. completed transesophageal echocardiograpy and no source of emboli or other significant pathologies identified. carotid artery duplex was completed as well. 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, tibialis Anterior, toe extension (EHL), plantarflexion Mental Status Examination: Present: awake, alert, oriented to person, oriented to place, oriented to time, follows commands appropriately, answers questions appropriately, no agnosia, no aphasia, no aproxia Cranial nerve examination: Present: PERRL, EOMI, visual carrington intact, corneal reflexes brisk symmetrically, sensory to face intact, mastication intact, no facial asymmetry is present, no dysarthria, hearing is intact symmetrically, soft palate elevates bilaterally upon phonation, gag reflex intact, flexes SCM and trapezius muscles symmetrically with full power, tongue protrudes midline, no atrophy or facial fasiculations present Cerebellar examination: Present: no dysmetria, performs finger to nose and heel to rosen symmetrically without ataxia, no gait ataxia, no truncal ataxia, no difficulty with rapid alternating movements - VTE Reasons for not Prescribing Prophylaxis: Treatment not Indicated - Low risk for VTE Documentation of Mechanical Device: Intermittent pneumatic compression device Results - Laboratory Findings CBC and BMP: 07/31/17 03:44 07/30/17 04:01 Abnormal lab findings: Abnormal lab results MCH 27.0 pg (28.0-33.3) L 07/31/17 03:44 PT 14.2 Seconds (9.4-12.1) H 07/29/17 21:44 Glucose 116 mg/dL (70-99) H 07/30/17 04:01 POC Glucose 125 (58-89) H 07/29/17 21:40 Ur Specific [place] 1.030 (1.010-1.025) H 07/30/17 01:34 Urine Protein 100 mg/dL (Neg-Trace) H 07/30/17 01:34 Urine Ketones 15 mg/dL (Negative) H 07/30/17 01:34 Urine Blood Moderate (Negative) H 07/30/17 01:34 Urine Bilirubin Small (Negative) H 07/30/17 01:34 Urine Microscopic RBC 30-50 per hpf (0-3) H 07/30/17 01:34 Urine Microscopic WBC 3-5 per hpf (0-3) H 07/30/17 01:34 Ur Squamous Epith Cells Many per lpf (None-Few) H 07/30/17 01:34 Consult Discharge Plan - Plan Instructions: Metoprolol (By mouth), Aspirin (By mouth), Amlodipine (By mouth) , Atorvastatin (By mouth), Losartan/Hydrochlorothiazide (By mouth), Heart Healthy Diet (GEN), Seasoning Without Salt (DC), Seasoning Without Salt (GEN), Ischemic Stroke (DC), Ischemic Stroke (GEN), Chronic Hypertension (DC), Low Sodium Diet (GEN) Additional Instructions: - Continue all meds as per discharge instructions - Return if symptoms worsen - Follow up with primary care physician - Check blood pressure daily, and advised to be compliant with medication - Will need outpatient Holter monitoring Referrals: Enedelia Ny MD [Partnered Physician] - 08/17/17 9:00 am Trey Carson MD [Non-Partnered Physician] - 08/26/17 9:15 am Prescriptions: amLODIPine [Norvasc] 5 mg PO DAILY #30 tablet Aspirin 325 mg PO DAILY #30 tablet Atorvastatin [Lipitor] 40 mg PO HS #30 tablet Losartan/HCTZ [Hyzaar 50-12.5 Tablet] 1 each PO DAILY #30 tablet Metoprolol Tartrate [Lopressor] 50 mg PO BID #60 tablet
[2017-08-01 16:14] VITALS: BP 177/98
== END 2017-08-01 17:04 | disposition home or self-care (01) | DRG 65 ==
LOC: EMEROO 21:35 → 2NENU 21:35
PROVIDERS: ADMIT Hospitalist; ATTEND Internal Medicine